=== PATIENT | female | born 1940 | race Caucasian/White ===

== ENCOUNTER 2017-04-14 09:38 | Day surgery (SDC) | payer MEDICARE ==
--- NOTE | 2017-04-13 06:28 | CR ---
DATE OF CONSULTATION: 04/06/2017 PREOPERATIVE EVALUATION AND CONSULTATION REQUESTING CONSULTATION: Dr. Breaux of ophthalmology. CONSULTING PHYSICIAN: Dr. Leonard Richmond, [facility]. PROPOSED SURGERY: Cataract extraction with intraocular lens implant to be completed on 04/14/2017, and 05/05/2017, at [facility] (left eye, then right eye). CHIEF COMPLAINT: Blurred vision due to cataracts. HISTORY OF PRESENT ILLNESS: This is a very pleasant 76-year-old patient who is well known to myself, who presents for preoperative evaluation and consultation. The patient overall reports that she feels well. She denies any new problems or issues. Although she has had a history of palpitations, electrocardiograms (EKGs) have been normal, as has other cardiac testing including an echocardiogram on 11/20/2016, that showed mild aortic sclerosis only, and normal sinus rhythm on EKG. She has never had any issues with anesthesia. She has not had any significant respiratory issues. She has never smoker, and although she notes she may snore, she denies any other symptoms of obstructive sleep apnea (JUSTINE) and has had no family history of malignant hyperthermia. Her chronic medical issues all appear to be stable, including hyperlipidemia, gastroesophageal reflux disease (GERD), allergic rhinitis, anxiety, and hearing loss. Each of her medications was reviewed, and again, she feels well today without new symptoms or issues, and 10-system review is completely negative. PAST MEDICAL HISTORY: 1. Hyperlipidemia. 2. GERD. 3. Anxiety. 4. Allergic rhinitis. 5. Vitamin D deficiency. 6. Osteoporosis. 7. History of palpitations. 8. Bee sting allergy. 9. Age-related hearing loss. Uses hearing aids. MEDICATION ALLERGIES: 1. PENICILLIN causes hives. 2. SULFA cases severe yeast infections per patient. 3. CIPROFLOXACIN caused hives. 4. The patient does have BEE STING allergy causing hives. PAST SURGICAL HISTORY: 1. She had a breast cyst excision times two. 2. Appendectomy. 3. Total hysterectomy. 4. Cholecystectomy with Dr. Funez, March 2016. 5. 4, para 3 with spontaneous (AB) and dilation and curettage ( D and C). MEDICATIONS: - simvastatin 20 mg by mouth at bedtime - omeprazole 20 mg by mouth daily - loratadine 10 mg daily as needed for allergies - sertraline 100 mg daily - Xanax 0.5 mg taken twice a day as needed for anxiety - rarely taken - Epipen as needed for bee sting allergy - omega 3 and DHA supplements - aspirin 81 mg by mouth daily - calcium 600 plus 800 of D - Centrum Silver multivitamin daily - vitamin B12 1000 mcg daily - milk thistle daily FAMILY HISTORY: Father of congestive heart failure (CHF) at age 74. He also likely had stroke and myocardial infarction (AL). Mother of natural causes at age 84. She was in a fci after a hip fracture. She has a brother with heart issues and a pacemaker. Three sisters, one with significant anxiety, second with heart issues and two open heart surgeries. Third with a stroke who at age 69 of throat cancer related to her smoking. SOCIAL HISTORY: The patient lives alone. She has a significant other, Joni Lockwood, with whom she spends most of her time. She was in 2001. Her of gastric cancer. She is a snowbird, spending much of her time between April to October in [place], [place]. She has never smoked, only rarely takes alcohol. Does exercise over three minutes without difficulty. Review of Systems: Negative x 10 systems. PHYSICAL EXAMINATION: VITAL SIGNS: Blood pressure is 96/68 (at baseline), pulse 68, height of 5 feet 2 inches, weight of 135 pounds. Oxygen saturation 98% on room air. Body mass index (BMI) of 24.7. GENERAL: The patient appears to have baseline health. She is smiling, well, interactive, nontoxic, and no signs of distress. She is smiling and conversant. HEENT: Head is atraumatic, normocephalic. Pupils equal, round, and reactive to light and accommodation. Extraocular motions are intact. Oral cavity and oropharynx are benign. External nose is benign as are external ears. She has hearing aids in bilaterally. Tympanic membranes (TMs) were evaluated and are being as she removed her hearing aids. NECK: Supple. No lymphadenopathy or thyromegaly. HEART: Regular rate and rhythm. S1, S2. No murmurs appreciated today; however, 1/6 systolic ejection murmur has been heard in the past. LUNGS: Clear to auscultation bilaterally. No rales, rhonchi or wheezes. ABDOMEN: Soft, nontender, nondistended. EXTREMITIES: No clubbing, cyanosis or edema. NEUROLOGIC: Exam is nonfocal. EKG today shows normal sinus rhythm with a borderline first-degree heart block with a SD-interval of 200 milliseconds. There is similar to a 11/04/2016 tracing with the exception of slight increase in the SD-interval. No other significant abnormalities. Most recent labs in October showed normal electrolytes, thyroid, liver function testing. No other preoperative testing was ordered. ASSESSMENT AND PLAN: 1. Preoperative evaluation and consultation. At this point in time, the patient is optimized for surgical intervention. This is a very low-risk surgery and the patient has no specific cardiac, pulmonary or anesthesia risks at this point in time, with the exception of her chronic medical issues as outlined above. Again, she appears to be optimized for surgical intervention. 2. Unspecified cataract. The patient looks forward to cataract extraction. If appears the left cataract is planned for 04/14/2017, and the right for 05/05/2017. The patient looks forward to better vision. 3. Hyperlipidemia. Last lipids did show elevation. She is working on diet and some regular exercise, and we discussed this today. She is taking simvastatin appropriately without myalgias, and will continue to monitor. 4. Gastroesophageal reflux disease (GERD). Good results on daily omeprazole. We discussed possibly changing to every other day to avoid side effects of continued use. She understands and will let us know if she does. 5. Allergic rhinitis, but generally controlled on present medications. Will monitor. 6. Anxiety. Feels well on sertraline with very rare use of Xanax. Will monitor. 7. Presbycusis. Doing well with hearing aids. Will continue to following up with her hearing health technician. ONGOING CARE: I am going to see the patient as scheduled in my office. If she has any new issues or concerns prior to surgery, she will let me know. Otherwise, it is notable the patient has had a workup for palpitations in the past, which have shown only sinus rhythm, but if there are any concerns at any point, please feel free to call me at [phone]. [facility]
[~2017-04-14] VITALS: Ht 154.9 cm; Wt 59.9 kg
[~2017-04-14 09:38] MED LIST: ACETAMINOPHEN 325 MG TAB PO PRN; ASPI81TA85 PO; BSS with VANC/TOB/EPI for EYE CASES IR ONE; CLEO300C2 PO; CYCLOPENTOLATE 2% OPHTH SOLN 2ML BTL XX ONE; EPIP0.3I2 INJ; FISH1000 PO; HEALON DUET (HEALON 10MG/ML 0.55ML & HEALON ENDOCOAT 30MG/ML 0.85ML) As Ordered ONE; LIDOCAINE 1% SDV 5 ML VIAL As Ordered ONE; LIDOCAINE 3.5 % 1ML OPHTH TOPICAL GEL OU ONE; MILK200C PO; NORCOTAB PO; OFLOXACIN 0.3 % (OCUFLOX) OPTH SOL 5ML XX ONE; OMEP20CA3 PO; PHENYLEPHRINE 2.5% OPHTH SOL 2ML XX ONE; POVIDONE-IODINE 5% OPHTH PREP SOL 30ML As Ordered ONE; PROPARACAINE 0.5% OPHTH SOL 15ML OS PRN; SENN1TAB2 PO; SERT50TA PO; SIMV10TA2 PO; TRIAMCINOLONE PRES FR 40 MG/ML 1ML(TRIESENCE)(OR EYE ONLY)(J3300 PER 1MG) As Ordered ONE; TROPICAMIDE 1% OPHTH SOLN 2ML XX ONE; VITA10002 PO; VITMTA PO; XANA0.5T PO; ZOLO100T PO
[2017-04-14] MEDS ORDERED: LR 500 ML IV ONE (10:00)
[2017-04-14] MEDS ORDERED: MIDAZOLAM INJ 2 MG/2 ML VIAL (J2250) As Ordered ONE (10:03)
[2017-04-14] MEDS ORDERED: fentaNYL 100 MCG/2 ML INJECTION (J3010) As Ordered ONE (10:03)
[2017-04-14] MEDS ORDERED: CEFUROXIME 1MG/0.1ML INTRACAMERAL INJ As Ordered ONE (10:17)
[2017-04-14 11:10] VITALS: BP 118/59
[2017-04-14] MEDS ORDERED: KETOROLAC 0.5% OPHTH SOLN OS ONE (11:30)
[2017-04-14] MEDS ORDERED: AcetaZOLAMIDE 500 MG ER CAP PO ONE (11:30)
[2017-04-14] MEDS ORDERED: TRIMETHOBENZAMIDE 300 MG CAP PO PRN (11:30)
== END 2017-04-14 11:45 | disposition home or self-care (01) ==
LOC: M SDC 09:38
PROVIDERS: ATTEND Ophthalmology
DX: H26.9 Unspecified cataract (principal); K21.9 Gastro-esophageal reflux disease without esophagitis; R29.898 Other symptoms and signs involving the musculoskeletal system; E78.5 Hyperlipidemia, unspecified; F41.9 Anxiety disorder, unspecified; J30.9 Allergic rhinitis, unspecified; E55.9 Vitamin D deficiency, unspecified; M81.0 Age-related osteoporosis without current pathological fracture; R06.83 Snoring; Z88.0 Allergy status to penicillin; Z88.1 Allergy status to other antibiotic agents; Z88.8 Allergy status to other drugs, medicaments and biological substances; Z91.030 Bee allergy status; Z79.899 Other long term (current) drug therapy; Z79.82 Long term (current) use of aspirin; Z85.828 Personal history of other malignant neoplasm of skin
CPT/HCPCS: 66984; J2250; J3010; J3300; V2632

== ENCOUNTER → 2017-04-30 | Outpatient (CLI) | payer MEDICARE ==
[~2017-04-30] MED LIST changes: -ACETAMINOPHEN 325 MG TAB PO PRN; -BSS with VANC/TOB/EPI for EYE CASES IR ONE; -CYCLOPENTOLATE 2% OPHTH SOLN 2ML BTL XX ONE; -HEALON DUET (HEALON 10MG/ML 0.55ML & HEALON ENDOCOAT 30MG/ML 0.85ML) As Ordered ONE; -LIDOCAINE 1% SDV 5 ML VIAL As Ordered ONE; -LIDOCAINE 3.5 % 1ML OPHTH TOPICAL GEL OU ONE; -OFLOXACIN 0.3 % (OCUFLOX) OPTH SOL 5ML XX ONE; -PHENYLEPHRINE 2.5% OPHTH SOL 2ML XX ONE; -POVIDONE-IODINE 5% OPHTH PREP SOL 30ML As Ordered ONE; -PROPARACAINE 0.5% OPHTH SOL 15ML OS PRN; -TRIAMCINOLONE PRES FR 40 MG/ML 1ML(TRIESENCE)(OR EYE ONLY)(J3300 PER 1MG) As Ordered ONE; -TROPICAMIDE 1% OPHTH SOLN 2ML XX ONE
--- NOTE | 2017-04-30 11:30 | REPMRS ---
Patient History The patient states she had a clinical breast exam in 04/2017. Patient has history of other cancer at age 69. Family history of colorectal cancer in father at age 50 or over and ovarian cancer in niece. Benign excisional biopsy of the right breast, 1971. Benign excisional biopsy of the right breast, 2. Digital Woman Screen Mammo: April 30, 2017 - Exam #: [id number] Bilateral CC and MLO view(s) were taken. Technologist: Esther Bartlett, Technologist Prior study comparison: April 30, 2016, digital woman screen mammo performed at [facility]. April 30, 2015, digital woman screen mammo performed at [facility]. May 07, 2014, digital woman screen mammo performed at [facility]. FINDINGS: There are scattered fibroglandular densities. There is a moderate amount of residual fibroglandular tissue which is fairly symmetric. There is no interval development of dominant mass, architectural distortion, or clustered microcalcification typical of malignancy. There has been no change in the appearance of the mammogram from the prior studies. ASSESSMENT: BI-RADS/ACR category 1 mammogram. Negative. Recommendation Routine screening mammogram of both breasts in 1 year (for women over age 40). This mammogram was interpreted with the aid of an FDA-approved computer-aided dectection system. Electronically Signed By: Reji Dailey MD 04/30/17 [id number]
== END ==
LOC: M WHC 10:28
PROVIDERS: ATTEND Nurse Practitioner Family
DX: Z01.419 Encounter for gynecological examination (general) (routine) without abnormal findings (principal); Z12.31 Encounter for screening mammogram for malignant neoplasm of breast; Z12.12 Encounter for screening for malignant neoplasm of rectum; Z92.89 Personal history of other medical treatment
CPT/HCPCS: 82270; G0101; G0202

== ENCOUNTER 2017-05-05 07:24 | Day surgery (SDC) | payer MEDICARE ==
[~2017-05-05] VITALS: Ht 154.9 cm; Wt 59.9 kg
[~2017-05-05 07:24] MED LIST changes: +BSS with VANC/TOB/EPI for EYE CASES IR ONE; +CYCLOPENTOLATE 2% OPHTH SOLN 2ML BTL OD ONE; +LIDOCAINE 3.5 % 1ML OPHTH TOPICAL GEL OU ONE; +MIDAZOLAM INJ 2 MG/2 ML VIAL (J2250) As Ordered ONE; +OFLOXACIN 0.3 % (OCUFLOX) OPTH SOL 5ML OD ONE; +PHENYLEPHRINE 2.5% OPHTH SOL 2ML OD ONE; +TROPICAMIDE 1% OPHTH SOLN 2ML OD ONE; +fentaNYL 100 MCG/2 ML INJECTION (J3010) As Ordered ONE
[2017-05-05] MEDS ORDERED: LR 1,000 ML IV ONE (07:45)
[2017-05-05] MEDS ORDERED: HEALON DUET (HEALON 10MG/ML 0.55ML & HEALON ENDOCOAT 30MG/ML 0.85ML) As Ordered ONE (09:03)
[2017-05-05] MEDS ORDERED: POVIDONE-IODINE 5% OPHTH PREP SOL 30ML As Ordered ONE (09:03)
[2017-05-05] MEDS ORDERED: TRIAMCINOLONE PRES FR 40 MG/ML 1ML(TRIESENCE)(OR EYE ONLY)(J3300 PER 1MG) As Ordered ONE (09:03)
[2017-05-05] MEDS ORDERED: LIDOCAINE 1% SDV 5 ML VIAL As Ordered ONE (09:03)
[2017-05-05] MEDS ORDERED: MOXIFLOXACIN IN BSS 0.25MG/0.25ML INTRACAMERAL INJ (OR EYE ONLY)(J2280) As Ordered ONE (09:04)
[2017-05-05 10:11] VITALS: BP 155/67
== END 2017-05-05 10:12 | disposition home or self-care (01) ==
LOC: M SDC 07:24
PROVIDERS: ATTEND Ophthalmology
DX: H26.9 Unspecified cataract (principal); K21.9 Gastro-esophageal reflux disease without esophagitis; F41.9 Anxiety disorder, unspecified; F32.9 Major depressive disorder, single episode, unspecified; R06.83 Snoring; Z88.0 Allergy status to penicillin; Z88.1 Allergy status to other antibiotic agents; Z91.030 Bee allergy status; Z79.899 Other long term (current) drug therapy; Z79.82 Long term (current) use of aspirin; Z90.710 Acquired absence of both cervix and uterus
CPT/HCPCS: 66984; J2250; J2280; J3010; J3300; V2632

== ENCOUNTER → 2018-05-02 | Outpatient (CLI) | payer MEDICARE | LOC: M WHC 10:03 | DX: Z12.31 Encounter for screening mammogram for malignant neoplasm of breast (principal); Z01.419 Encounter for gynecological examination (general) (routine) without abnormal findings (principal); R92.8 Other abnormal and inconclusive findings on diagnostic imaging of breast; Z80.0 Family history of malignant neoplasm of digestive organs; Z98.890 Other specified postprocedural states; Z12.12 Encounter for screening for malignant neoplasm of rectum | CPT/HCPCS: 77067 ==

== ENCOUNTER → 2019-04-05 | Outpatient (CLI) | payer MEDICARE ==
[~2019-04-05] MED LIST changes: -BSS with VANC/TOB/EPI for EYE CASES IR ONE; +CYAN100049 PO; -CYCLOPENTOLATE 2% OPHTH SOLN 2ML BTL OD ONE; +HYDR-3715 PO; -LIDOCAINE 3.5 % 1ML OPHTH TOPICAL GEL OU ONE; -MIDAZOLAM INJ 2 MG/2 ML VIAL (J2250) As Ordered ONE; -NORCOTAB PO; -OFLOXACIN 0.3 % (OCUFLOX) OPTH SOL 5ML OD ONE; -OMEP20CA3 PO; +OMEP20CA4 PO; -PHENYLEPHRINE 2.5% OPHTH SOL 2ML OD ONE; -SENN1TAB2 PO; +SENN1TAB40 PO; +SERT-141 PO; -SERT50TA PO; -TROPICAMIDE 1% OPHTH SOLN 2ML OD ONE; -VITA10002 PO; -fentaNYL 100 MCG/2 ML INJECTION (J3010) As Ordered ONE
--- NOTE | 2019-04-05 18:34 | REP ---
REASON: Cough. COMPARISON: None. FINDINGS: The superior mediastinal structures are midline. The cardiac silhouette is unremarkable in size, shape, and position. The diaphragmatic surfaces of the lungs are regular, and the costophrenic angles are clear. The pulmonary del valle are clear. The imaged osseous structures are intact. IMPRESSION: There is no acute cardiopulmonary disease. Electronically Signed by Devang Sarkar DO 04/05/2019 07:13 P
== END ==
LOC: M LRY 17:27
PROVIDERS: ATTEND Physician Assistant
DX: R05 Cough (principal)
CPT/HCPCS: 71046; G0463

== ENCOUNTER → 2019-06-28 | Outpatient (CLI) | payer MEDICARE ==
[~2019-06-28] MED LIST changes: +SENN-53 PO; -SENN1TAB40 PO; -SIMV10TA2 PO; +SIMV10TA21 PO
== END ==
LOC: M WHC 14:12
PROVIDERS: ATTEND Family Medicine
DX: M81.0 Age-related osteoporosis without current pathological fracture (principal)

== ENCOUNTER → 2020-01-10 | Outpatient (CLI) | payer MEDICARE ==
[~2020-01-10] MED LIST changes: +OMEP1CAP73 PO; -OMEP20CA4 PO
--- NOTE | 2020-01-10 16:31 | REPMRS ---
Patient History The patient states she had a clinical breast exam in December 2019. Family history of colorectal cancer at age 50 or over in father, ovarian cancer in niece. Benign excisional biopsy of the right breast, 1971. Benign excisional biopsy of the right breast, 1961. No Hormone Replacement Therapy Digital Woman Screen Mammo: January 10, 2020 - Exam #: [id number] Bilateral CC and MLO view(s) were taken. Technologist: Joan Day, Technologist Prior study comparison: May 02, 2018, bilateral digital woman screen mammo performed at [facility]. April 30, 2017, digital woman screen mammo performed at [facility]. April 30, 2016, digital woman screen mammo performed at [facility]. FINDINGS: There are scattered fibroglandular densities. The Volpara volumetric breast density category is: B. There is a stable well-circumscribed nodule laterally in the right breast unchanged from multiple prior studies. There is a moderate amount of residual fibroglandular tissue which is fairly symmetric. There is no interval development of dominant mass, architectural distortion, or grouped microcalcification typical of malignancy. There has been no change in the appearance of the mammogram from the prior studies. 3-D tomosynthesis shows no additional findings. Assessment: BI-RADS/ACR category 2 mammogram. Benign Findings. Recommendation Routine screening mammogram of both breasts in 1 year (for women over age 40). This patient's Lifetime Breast Cancer RIsk is estimated at 2.3 %. This mammogram was interpreted with the aid of an FDA-approved computer-aided dectection system. Electronically Signed By: Reji Dailey MD 01/10/20 [id number]
== END ==
LOC: M WHC 14:34
PROVIDERS: ATTEND Nurse Practitioner Family
DX: Z01.419 Encounter for gynecological examination (general) (routine) without abnormal findings (principal); Z12.31 Encounter for screening mammogram for malignant neoplasm of breast; Z80.0 Family history of malignant neoplasm of digestive organs; Z80.41 Family history of malignant neoplasm of ovary; Z86.018 Personal history of other benign neoplasm
CPT/HCPCS: 77063; 77067; G0101

== ENCOUNTER → 2020-05-22 | Outpatient (REF) | payer MEDICARE ==
[~2020-05-22] MED LIST changes: -ASPI81TA85 PO; +ASPI81TA86 PO
== END ==
LOC: M LAB REF 09:35
PROVIDERS: ATTEND Ophthalmology
DX: H02.413 Mechanical ptosis of bilateral eyelids (principal)

== ENCOUNTER → 2021-07-09 | Outpatient (CLI) | payer MEDICARE ==
--- NOTE | 2021-07-09 15:30 | REP ---
INDICATION: CHRIS SCR MAMMO. COMPARISON: Multiple TECHNIQUE: Digital screening mammography was carried out bilaterally in the CC and MLO projections using both 2D and 3D modalities and compared to the prior exams. By history, the patient has no complaints of a palpable breast abnormality or other significant breast complaints. FINDINGS: The breasts are unchanged in size and shape. Once again, dense heterogenous fibroglandular elements are seen bilaterally to such a degree that the sensitivity of the mammogram in detecting cancer is decreased. Stable benign calcifications are seen bilaterally. In the left breast slightly lower outer aspect near the 3 o'clock position there is a potential beulah asymmetric density. No other suspicious features are seen in either breast. The Volpara volumetric breast density pattern is C. IMPRESSION: BIRADS/ACR category 0 mammogram. There is a potential beulah asymmetric density seen in left breast near the 3 o'clock position as described above and for which diagnostic digital DBT spot compression views are recommended in the CC and MLO projections along with diagnostic ultrasonography if indicated. This patient's Tyrer-Cuzick lifetime breast cancer risk assessment score is 2 point%. This mammogram was interpreted with the aid of an FDA-approved computer-aided detection system. The patient states she had a clinical breast exam in June 2021. The patient letter being requested is M0. RECOMMENDATION: As above <Electronically signed by Devang Sarkar > 07/09/21 [id number]
== END ==
LOC: M WHC 13:27
PROVIDERS: ATTEND Nurse Practitioner Women's Health
DX: Z12.31 Encounter for screening mammogram for malignant neoplasm of breast (principal); R92.1 Mammographic calcification found on diagnostic imaging of breast; N63.23 Unspecified lump in the left breast, lower outer quadrant
CPT/HCPCS: 77063; 77067; G0463

== ENCOUNTER → 2021-07-23 | Outpatient (CLI) | payer MEDICARE ==
--- NOTE | 2021-07-23 15:11 | REP ---
INDICATION: LEFT BREAST ADD VIEWS. COMPARISON: 07/09/2021 as well as multiple other prior exams. TECHNIQUE: Multiple spot compression tomographic images obtained. Focused left breast ultrasound performed. FINDINGS: On today's additional views there does appear to be an irregular 1 cm nodular density in the upper-outer quadrant of the left breast. This is best seen in the CC projection. Real-time sonographic evaluation of the upper-outer quadrant of the left breast fails to reveal a discrete cystic or solid mass. Scattered subcentimeter cysts are present. IMPRESSION: BIRADS/ACR category 4, suspicious. Irregular 1 cm nodular density upper-outer quadrant left breast. This is best seen in the CC projection, and is not visualized by ultrasound. Recommend stereotactic biopsy in the CC projection. This mammogram was interpreted with the aid of an FDA-approved computer-aided detection system. The patient letter being requested is M4. RECOMMENDATION: Recommend stereotactic biopsy left breast as discussed above. <Electronically signed by David Banda > 07/23/21 [id number]
== END ==
LOC: M WHC 12:29
PROVIDERS: ATTEND Nurse Practitioner Women's Health
DX: Z12.39 Encounter for other screening for malignant neoplasm of breast (principal); R92.8 Other abnormal and inconclusive findings on diagnostic imaging of breast
CPT/HCPCS: 76642; 77065; G0279

== ENCOUNTER → 2021-08-26 | Outpatient (CLI) | payer MEDICARE ==
[~2021-08-26] MED LIST changes: +**SFHN** LIDOCAINE 1% MDV 20ML VIAL ONE; +**SFHN** SODIUM BICARBONATE 8.4% 10MEQ 10ML VIAL ONE
[2021-08-26 13:35] VITALS: BP 126/74
== END ==
LOC: M WHCPRO 12:26
PROVIDERS: ATTEND Surgery
DX: N60.12 Diffuse cystic mastopathy of left breast (principal)

== ENCOUNTER → 2021-09-26 | Outpatient (CLI) | payer MEDICARE ==
[~2021-09-26] MED LIST changes: -**SFHN** LIDOCAINE 1% MDV 20ML VIAL ONE; -**SFHN** SODIUM BICARBONATE 8.4% 10MEQ 10ML VIAL ONE
[2021-09-26 17:43] LABS: BLOOD UREA NITROGEN 9 MG/DL (7-18); CALCIUM LEVEL 9.2 MG/DL (8.8-10.2); CARBON DIOXIDE LEVEL 32 MEQ/L (21-32); CHLORIDE LEVEL 104 MEQ/L (98-107); CREATININE FOR GFR 0.74 MG/DL (0.55-1.30); GLOMERULAR FILTRATION RATE > 60.0 (>39); GLUCOSE, FASTING 99 MG/DL (70-100); POTASSIUM SERUM 4.4 MEQ/L (3.5-5.1); SODIUM LEVEL 139 MEQ/L (136-145)
== END ==
LOC: M PLALAB 14:09
PROVIDERS: ATTEND Nurse Practitioner Women's Health
DX: Z01.812 Encounter for preprocedural laboratory examination (principal); R92.8 Other abnormal and inconclusive findings on diagnostic imaging of breast

== ENCOUNTER → 2021-09-29 | Outpatient (CLI) | payer MEDICARE ==
[~2021-09-29] MED LIST changes: +PROHANCE 279.3MG/ML 15ML VIAL ONE
== END ==
LOC: M PLAIMG 11:58
PROVIDERS: ATTEND Nurse Practitioner Women's Health
DX: R92.8 Other abnormal and inconclusive findings on diagnostic imaging of breast (principal)
CPT/HCPCS: A9576; C8908

== ENCOUNTER → 2022-02-20 | Outpatient (CLI) | payer MEDICARE ==
[~2022-02-20] MED LIST changes: -PROHANCE 279.3MG/ML 15ML VIAL ONE
== END ==
LOC: M WHC 11:52
PROVIDERS: ATTEND Nurse Practitioner Women's Health
DX: R92.8 Other abnormal and inconclusive findings on diagnostic imaging of breast (principal)
CPT/HCPCS: 77065; G0279

== ENCOUNTER → 2022-07-08 | Outpatient (CLI) | payer MEDICARE | LOC: M EKG 12:49 | PROVIDERS: ATTEND Family Medicine | DX: I48.91 Unspecified atrial fibrillation (principal) ==

== ENCOUNTER → 2022-10-19 | Outpatient (CLI) | payer MEDICARE | LOC: M WHC 10:52 | PROVIDERS: ATTEND Family Medicine | DX: Z12.31 Encounter for screening mammogram for malignant neoplasm of breast (principal) ==

== ENCOUNTER → 2022-12-24 | Outpatient (CLI) | payer MEDICARE | LOC: M WHC 08:28 | PROVIDERS: ATTEND Family Medicine | DX: R10.9 Unspecified abdominal pain (principal) ==

== ENCOUNTER → 2023-03-04 | Outpatient (CLI) | payer MEDICARE ==
[~2023-03-04] MED LIST changes: +GASTROGRAFIN SOLUTION 30ML As Ordered ONE; +ISOVUE-370 76% 100ML VIAL As Ordered ONE
== END ==
LOC: M RAD 13:37
PROVIDERS: ATTEND Family Medicine
DX: R14.0 Abdominal distension (gaseous) (principal)
CPT/HCPCS: 74177; Q9963; Q9967

== ENCOUNTER → 2023-10-21 | Outpatient (CLI) | payer MEDICARE ==
[~2023-10-21] MED LIST changes: -GASTROGRAFIN SOLUTION 30ML As Ordered ONE; -ISOVUE-370 76% 100ML VIAL As Ordered ONE
== END ==
LOC: M WHC 13:10
PROVIDERS: ATTEND Family Medicine
DX: Z12.31 Encounter for screening mammogram for malignant neoplasm of breast (principal)

== ENCOUNTER → 2024-11-01 | Outpatient (CLI) | payer MEDICARE | LOC: M WHC 12:47 | PROVIDERS: ATTEND Family Medicine | DX: Z12.31 Encounter for screening mammogram for malignant neoplasm of breast (principal) ==

== ENCOUNTER → 2025-01-29 | Outpatient (CLI) | payer MEDICARE | LOC: M WHC 13:33 | PROVIDERS: ATTEND Family Medicine | DX: M85.89 Other specified disorders of bone density and structure, multiple sites (principal) ==